=== PATIENT | female | born 1995 | race Caucasian/White ===

== ENCOUNTER 2017-12-10 15:14 | Emergency (ER) | payer OTHER ==
--- NOTE | 2017-12-10 15:35 | EDPHY ---
H & P Stated Complaint: NVD - recent travel to [place] Time Seen by Provider: 12/10/17 15:23 - Personal History LMP (Females 10-55): IUD In Place Current Tetanus Diphtheria and Acellular Pertussis (TDAP): Yes - Medical/Surgical History Hx Asthma: No Hx Chronic Respiratory Disease: No Hx Diabetes: No Hx Cardiac Disease: No Hx Renal Disease: No Hx Cirrhosis: No Hx Alcoholism: No Hx HIV/AIDS: No Hx Splenectomy or Spleen Trauma: No Other PMH: Denies - Social History Smoking Status: Never smoked Constitutional: Initial Vital Signs Temperature (C) 36.3 C 12/10/17 15:20 Heart Rate 79 12/10/17 15:20 Respiratory Rate 18 12/10/17 15:20 Blood Pressure 133/83 H 12/10/17 15:20 O2 Sat (%) 97 12/10/17 15:20 O2 Delivery Mode Room Air Allergies/Adverse Reactions: No Known Allergies Allergy (Unverified 12/10/17 15:20) Home Medications: Medication Instructions Recorded Azithromycin [Zithromax] 250 mg PO DAILY #6 tab 12/10/17 Hydrocodone/APAP 5/325 [[place] 1 - 2 each PO Q4-6PRN PRN #20 tab 12/10/17 5/325] Ondansetron Odt [Zofran Odt 4 mg 4 mg PO Q4 PRN #10 tab 12/10/17 (RX)] Medical Decision Making ED Course/Re-evaluation: CHIEF COMPLAINT: Nausea, vomiting, diarrhea HISTORY OF PRESENT ILLNESS: The patient is a 22 y/o female complaining of nausea, vomiting, diarrhea, and chills for 4 days. She recently traveled to [place] and had these symptoms onset shortly after eating [place] 4 days ago. , 3 days ago, was the worst day for her symptoms. Her symptoms have improved but she is still having frequent episodes of yellow, watery diarrhea every 10 minutes. She has not had a solid bowel movement since her symptoms began and her symptoms become exacerbated after eating. Her friend is in this ED with similar symptoms. Denies chest pain, shortness of breath, numbness, paresthesias, headache. REVIEW OF SYSTEMS: A 10 point review of systems was performed and is negative with the exception of the elements mentioned in the history of present illness. PHYSICAL EXAM: HR, BP, O2 Sat, RR. Temp noted General Appearance: Alert, well hydrated, appropriate, and non-toxic appearing. Head: Atraumatic without scalp tenderness or obvious injury Eyes: Pupils equal, round, reactive to light and accommodation, EOMI, no trauma , no injection. Ears: Clear bilaterally, no perforation, normal landmarks Nose: Atraumatic, no rhinorrhea, clear. Throat: There is no erythema or exudates, no lesions, normal tonsils, mucus membranes moist. Neck: Supple, nontender, no lymphadenopathy. Respiratory: No retractions, no distress, no wheezes, and no accessory muscle use. Lungs are clear to auscultation bilaterally. Cardiovascular: Regular rate and rhythm, no murmurs, rubs, or gallops. Good capillary refill all extremities. Gastrointestinal: Mild diffuse abdominal tenderness. Abdomen is soft, no masses , no rebound, no guarding, no peritoneal signs. Musculoskeletal: Normal active ROM of all extremities, atraumatic. Neurological: Alert, appropriate, and interactive. Non-focal neuro Skin: No rashes, good turgor, no nodules on palpation. Past medical history: Denies Past surgical history: Denies Family history: Denies Social history: Student at , lives in [place], [facility] DIFFERENTIAL DIAGNOSIS: The differential diagnosis for the patient's nausea, vomiting, and diarrhea included but was not limited to bacterial infection, parasitic infection, gastroenteritis, gastritis, appendicitis, and medication side effect. MEDICAL DECISION MAKING: The patient is a 22 y/o female presenting with nausea, vomiting, diarrhea, and chills for 4 days. She is still having frequent episodes of yellow, watery diarrhea. On exam she has mild diffuse abdominal tenderness. She does not want laboratory work preformed. 1gm IV Invanz, 2L IV NS, 0.5mg IV Dilaudid, and 4mg IV Zofran administered. 1712: Reassessed patient, she is not feeling improved and appears more pale than before. 10mg IV Reglan and an additional 4mg IV Zofran administered. 1850: Reassessed patient; she is feeling better and is now on a p.o. trial. I have prescribed her Zithromax, Zofran, and [place] for her symptoms. Return precautions provided; patient is comfortable with this plan. - Data Points Medications Given: Discontinued Medications Ertapenem (Invanz) 1 gm IVP EDNOW ONE PRN Reason: Protocol Stop: 12/10/17 15:52 Last Admin: 12/10/17 16:00 Dose: 1 gm Hydromorphone HCl (Dilaudid) 0.5 mg IVP EDNOW ONE Stop: 12/10/17 15:51 Last Admin: 12/10/17 15:45 Dose: 0.5 mg Sodium Chloride (Ns) 1,000 mls @ 0 mls/hr IV EDNOW ONE; Wide Open PRN Reason: Protocol Stop: 12/10/17 15:51 Last Admin: 12/10/17 15:45 Dose: 1,000 mls Sodium Chloride (Ns) 1,000 mls @ 0 mls/hr IV EDNOW ONE; Wide Open PRN Reason: Protocol Stop: 12/10/17 15:51 Last Admin: 12/10/17 15:45 Dose: 1,000 mls Metoclopramide HCl (Reglan Injection) 10 mg IVP EDNOW ONE Stop: 12/10/17 17:14 Last Admin: 12/10/17 17:14 Dose: 10 mg Ondansetron HCl (Zofran) 4 mg IVP EDNOW ONE Stop: 12/10/17 15:51 Last Admin: 12/10/17 15:45 Dose: 4 mg Departure - Departure Disposition: Home, Routine, Self-Care Clinical Impression: Diarrhea Qualifiers: Diarrhea type: unspecified type Qualified Code(s): R19.7 - Diarrhea, unspecified Condition: Good Instructions: Azithromycin (By mouth), Acute Diarrhea (ED) Additional Instructions: 1. Take Zithromax as prescribed. Make sure to finish the entire prescription even if your symptoms improve. 2. Clear liquids for 24 hours. 3. Advance diet as tolerated. I suggest the BRAT diet to start: bananas, rice, applesauce and toast. 4. Take Zofran as prescribed for nausea. 5. Take [place] as prescribed for severe pain. 6. Return for worsening symptoms, persistent vomiting, abdominal pain, any concerns. Referrals: [facility],. [Clinic] - As per Instructions Prescriptions: Azithromycin [Zithromax] 250 mg PO DAILY #6 tab Hydrocodone/APAP 5/325 [[place] 5/325] 1 - 2 each PO Q4-6PRN PRN #20 tab PRN Reason: Pain, Moderate Ondansetron Odt [Zofran Odt 4 mg (RX)] 4 mg PO Q4 PRN #10 tab PRN Reason: Nausea/Vomiting, Use 1st Report Scribed for: Dashawn Schwarz Report Scribed by: Lisa Wells Date of Report: 12/10/17 Time of Report: 15:35
[2017-12-10] MEDS ORDERED: HYDROmorphONE/DILAUDID 2 MG/ML INJ IVP ONE (15:50)
[2017-12-10] MEDS ORDERED: ONDANSETRON 4 MG/2 ML VIAL IVP ONE (15:50)
[2017-12-10] MEDS ORDERED: NS 1,000 ML IV ONE ×2 (15:50)
[2017-12-10] MEDS ORDERED: ERTAPENEM 1 GM VIAL IVP ONE (15:51)
[2017-12-10] MEDS ORDERED: METOCLOPRAMIDE 10 MG/2 ML VIAL ONE (17:13)
[2017-12-10] MEDS ORDERED: METOCLOPRAMIDE 10 MG/2 ML VIAL IVP ONE (17:13)
[2017-12-10 19:37] VITALS: BP 134/80
[2017-12-10] MEDS ORDERED: ONDANSETRON 4MG PREPACK#2 BTL TAKEHOME ONE ×2 (19:43→19:45)
== END 2017-12-10 19:37 | disposition home or self-care (01) ==
DX: R19.7 Diarrhea, unspecified (principal); E86.9 Volume depletion, unspecified
CPT/HCPCS: 96374; J1170; J1335; J2405; J2765